=== PATIENT | male | born 1960 | race Caucasian/White ===

== ENCOUNTER → 2018-05-21 | Outpatient (CLI) | payer OTHER ==
[~2018-05-21] VITALS: Ht 172.7 cm; Wt 80.3 kg
[~2018-05-21] MED LIST: LIPITOR80 MG PO; LISINOPRIL20 MG PO
== END | disposition home or self-care (01) ==
LOC: GI 08:36
DX: Z12.11 Encounter for screening for malignant neoplasm of colon (principal); K57.30 Diverticulosis of large intestine without perforation or abscess without bleeding; K64.8 Other hemorrhoids; I10 Essential (primary) hypertension; E78.00 Pure hypercholesterolemia, unspecified; Z87.442 Personal history of urinary calculi; Z98.890 Other specified postprocedural states